=== PATIENT | female | born 1975 | race African-American/Black ===

== ENCOUNTER 2020-03-06 14:33 | Emergency (ER) | payer SELFPAY ==
[~2020-03-06] VITALS: Ht 170 cm; Wt 72.5 kg
--- NOTE | 2020-03-06 15:12 | ED General ---
General Chief Complaint: General Problems/Pain Stated Complaint: DX W/ LUPUS;BREAKOUT Source of Information: Patient Exam Limitations: No Limitations History of Present Illness Date Seen by Provider: Mar 06, 2020 Time Seen by Provider: 15:06 Initial Comments To ER by private vehicle with reports of itchy rash to the palms of her hands. States she has lupus and has been out of her medications for 2 months. This includes: amlodipine 10 mg daily Hydroxychloroquine 200 mg tablet taking 1.5 tablets daily Hydrochlorothiazide 25 mg daily Lisinopril 40 mg daily Carvedilol 12.5 mg twice a day Prednisone 5 mg daily Also reported to RN that she would like a prescription for Flexeril and OxyContin. She has just moved here from [place] a few months ago and has not yet established care with anyone. Timing/Duration: 1 Week Severity: Moderate Associated Systoms: Denies Symptoms Allergies and Home Medications Allergies Coded Allergies: No Known Drug Allergies (Unverified , 03/06/20) Patient Home Medication List Home Medication List Reviewed: Yes Review of Systems Review of Systems Constitutional: see HPI EENTM: see HPI Respiratory: no symptoms reported Cardiovascular: no symptoms reported Genitourinary: no symptoms reported Musculoskeletal: see HPI Skin: see HPI Psychiatric/Neurological: No Symptoms Reported Hematologic/Lymphatic: No Symptoms Reported Past Tqcrwzh-Mrynip-Zfzeut Hx Patient Social History Alcohol Use: Occasionally Uses Recreational Drug Use: No Smoking Status: Current Everyday Smoker Type Used: Cigarettes 2nd Hand Smoke Exposure: Yes Recent Foreign Travel: No Contact w/Someone Who Travel: No Recent Hopitalizations: No Past Medical History Surgeries: Yes (lumpectomy-doesn't know which breast) Breast, Tubal Ligation Respiratory: No Cardiac: Yes Hypertension Neurological: No Genitourinary: No Gastrointestinal: No Musculoskeletal: Yes (lupus) Endocrine: No HEENT: No Cancer: No Blood Disorders: No Physical Exam Vital Signs Capillary Refill : Height, Weight, BMI Height: '" Weight: lbs. oz. kg; BMI Method: General Appearance: No Apparent Distress, WD/WN Eyes: Bilateral Eye Normal Inspection, Bilateral Eye PERRL HEENT: PERRL/EOMI, TMs Normal Neck: Full Range of Motion, Normal Inspection Respiratory: No Accessory Muscle Use, No Respiratory Distress Cardiovascular: Regular Rate, Rhythm, Normal Peripheral Pulses Extremity: Normal Capillary Refill, Normal Inspection, Other (thickening of skin with darkening of the affected areas, multiple small vesicles, states th ey're very itchy, appearance of dyshidrotic eczema) Neurologic/Psychiatric: Alert, Oriented x3 Skin: Normal Color, Warm/Dry Progress/Results/Core Measures Suspected Sepsis SIRS Temperature: Pulse: Respiratory Rate: Blood Pressure / Mean: Results/Orders My Orders Orders - NICOLA ESPINOSA APRN Cbc With Automated Diff (03/06/20 15:02) Basic Metabolic Panel (03/06/20 15:02) Hcg,Qualitative Serum (03/06/20 15:02) Metoprolol Tartrate (Ir) Tab (Lopressor (03/06/20 15:15) Diphenhydramine Tablet (Benadryl Tablet) (03/06/20 15:15) Vital Signs/I&O Capillary Refill : Departure Impression Primary Impression: Eczema, dyshidrotic Additional Impressions: Hypertension Encounter for medication refill History of lupus Disposition: HOME, SELF-CARE Condition: Stable Departure-Patient Inst. Decision time for Depature: 15:11 Referrals: NO,LOCAL PHYSICIAN (PCP/Family) Primary Care Physician Patient Instructions: Lupus (DC), High Blood Pressure in Adults Add. Discharge Instructions: 1. Medication as directed 2. Call Dr. Schafer or Dr. Mendez or Dr. [facility] to make an appointment to be seen. They have a pharmacy in their clinic that can provide you with the medications at Little to no-cost based on certain criteria. However the prescriptions must be written by one of the clinic providers All discharge instructions reviewed with patient and/or family. Voiced understanding. Scripts Clobetasol Propionate (Clobetasol Propionate) 15 Gm Oint...g. 1 GM TP BID for 7 Days, #1 TUBE Apply to hands twice daily Prov: NICOLA ESPINOSA APRN 03/06/20 Amlodipine Besylate (Amlodipine Besylate) 5 Mg Tablet 5 MG PO DAILY, #30 TAB Prov: NICOLA ESPINOSA APRN 03/06/20 Hydroxychloroquine Sulfate (Hydroxychloroquine Sulfate) 200 Mg Tablet 1.5 TAB PO DAILY, #45 TAB Prov: NICOLA ESPINOSA APRN 03/06/20 Lisinopril (Lisinopril) 40 Mg Tablet 40 MG PO DAILY, #30 TAB Prov: NICOLA ESPINOSA APRN 03/06/20 Prednisone (Prednisone) 5 Mg Tablet 5 MG PO DAILY, #30 TAB Prov: NICOLA ESPINOSA APRN 03/06/20 Carvedilol (Carvedilol) 12.5 Mg Tablet 12.5 MG PO BID, #60 TAB Prov: NICOLA ESPINOSA APRN 03/06/20 NICOLA ESPINOSA APRN Mar 06, 2020 15:12
[2020-03-06] MEDS ORDERED: AMLO5TAB9 PO (15:15)
[2020-03-06] MEDS ORDERED: CARV12.53 PO (15:15)
[2020-03-06] MEDS ORDERED: HYDR200T46 PO (15:15)
[2020-03-06] MEDS ORDERED: CLOB15OI2 TP (15:15)
[2020-03-06] MEDS ORDERED: diphenhydrAMINE 25 MG TAB (BENADRYL) PO ONE (15:15)
[2020-03-06] MEDS ORDERED: meTOprolol TARTRATE 25 MG (LOPRESSOR) TABLET PO ONE (15:15)
[2020-03-06] MEDS ORDERED: LISI40TA PO (15:15)
[2020-03-06] MEDS ORDERED: PRED5TAB PO (15:15)
[2020-03-06 15:16] LABS: BASOPHILS # (AUTO) 0.1 10^3/uL (0.0-0.1); BASOPHILS % (AUTO) 1 % (0-10); EOSINOPHILS # (AUTO) 0.2 10^3/uL (0.0-0.3); EOSINOPHILS % (AUTO) 4 % (0-10); HEMATOCRIT 38 % (35-52); HEMOGLOBIN 12.8 G/DL (11.5-16.0); LYMPHOCYTES % (AUTO) 37 % (12-44); MEAN CORPUSCULAR HEMOGLOBIN 27 PG (25-34); MEAN CORPUSCULAR HGB CONC 33 G/DL (32-36); MEAN CORPUSCULAR VOLUME 82 FL (80-99); MEAN PLATELET VOLUME 11.7 FL (7.4-10.4); MONOCYTES # (AUTO) 0.6 X 10^3 (0.0-1.0); MONOCYTES % (AUTO) 12 % (0-12); NEUTROPHILS # (AUTO) 2.4 X 10^3 (1.8-7.8); NEUTROPHILS % (AUTO) 46 % (42-75); PLATELET COUNT 193 10^3/uL (130-400); RED CELL DISTRIBUTION WIDTH 13.9 % (10.0-14.5); WHITE BLOOD COUNT 5.3 10^3/uL (4.3-11.0)
--- OUTSIDE RECORDS SUMMARY | 2020-03-06 15:17 | XMS REPORT ---
Author Author Yana Dodge e[employer] Address Unknown Phone Unavailable Care Team Providers Care Surveyor Oil Well Directional Name Role Phone Brittany Dodge CP Unavailable Allergies, Adverse Reactions, Alerts Substance Reaction Event Type N.K.D.A. 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 Active Problem HTN (hypertension) I10 Active Medications Medication Code System Code Instructions Start Date End Date Status Dosage Albuterol Sulfate HFA [facility] [address]-51 108 (90 Ba se) MCG/ACT Inhalation every 4 hrs Sep 06, 2016 2 puffs as neede d PredniSONE [facility] [address]-03 5 mg Orally Once a day 1 tablet Carvedilol [facility] [address]-40 12.5 MG Orally bid 1 tablet Ergocalciferol [facility] [address]-45 71582 UNIT Orally weekly 1 capsule Solu-Medrol [facility] [address]-71 125 mg Injection One time, now Sep 06, 2016 as directed Hydroxychloroquine Sulfate [facility] [address]-98 200 MG Orally Once a da y 2 tablets with food or milk Lisinopril-Hydrochlorothiazide [facility] [address]-52 20-25 MG Orally Once a day Oct 08, 2013 1 tablet Cyclobenzaprine HCl [facility] [address]-69 10 mg Orally tid prn 1 tablet Ketorolac Tromethamine [facility] [address]-39 60 MG/2ML Intramu scular One time, now Sep 06, 2016 2 ml as needed Procedures Procedure Coding System Code Date Solu-Medrol, INJ (Methylprednisolone sodium)...DO NOT USE CPT-4 J2930 Sep 06, 2016 ketorolac tromethamine (Toradol), INJ CPT-4 J1885 Sep 06, 2016 ESTAB PT LEVEL IV CPT-4 05946 Sep 06, 2016 Vital Signs Date/Time: Sep 06, 2016 Temperature 97.1 F Weight 159.4 lbs Height 67 in Pain Scale 10 0-10 BMI 24.96 Index Blood Pressure Diastolic 104 mm Hg Blood Pressure Systolic 163 mm Hg Results Name Result Date Reference Range Unit Abnormali ty Flag ADE Comprehensive Panel ----Farley Antibodies <0.2 [id number] 0.0-0.9 AI ----Antiscleroderma-70 Antibodies 0.2 [id number] 0.0-0.9 AI ----Sjogren's Anti-SS-A <0.2 [id number] 0.0-0.9 AI ----Sjogren's Anti-SS-B 0.2 [id number] 0.0-0.9 AI ----Antichromatin Antibodies 1.8 [id number] 0.0-0.9 AI H ----Anti-Stefani-1 <0.2 [id number] 0.0-0.9 AI ----Anti-Centromere B Antibodies <0.2 [id number] 0.0-0.9 AI ----Anti-DNA (DS) Ab Qn <1 [id number] 0-9 IU/mL ----LIGHTNING ROD INSTALLER Antibodies 4.7 [id number] 0.0-0.9 AI H Sedimentation Rate-Westergren 100732 ----Sedimentation Rate-Westergren 26 [id number] 0-32 mm /hr Arthritis panel Uric A+ADE+RA Qn+CRP+ASO 30871 ----RA Latex Turbid. 12.2 [id number] 0.0-13.9 IU/mL ----ADE Direct Positive [id number] Negative A ----Antistreptolysin O Ab 100.7 [id number] 0.0-200.0 IU/mL ----C-Reactive Protein, Quant 13.2 [id number] 0.0-4.9 mg/L H ----Uric Acid, Serum 6.0 [id number] 2.5-7.1 mg/dL Summary Purpose eClinicalWorks Submission
--- OUTSIDE RECORDS SUMMARY | 2020-03-06 15:17 | XMS REPORT ---
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 Active Problem HTN (hypertension) I10 Active Assessment Long-term use of hydroxychloroquine Z79.899 Active Problem Long-term use of hydroxychloroquine Z79.899 Active Problem Preglaucoma, unspecified, bilateral H40.003 Active Medications Medication Code System Code Instructions Start Date End Date Status Dosage Lisinopril-Hydrochlorothiazide [facility] [address]-40 20-25 MG Orally Once a day Oct 08, 2013 1 tablet Ketorolac Tromethamine [facility] [address]-70 60 MG/2ML Intramu scular One time, now Sep 06, 2016 2 ml as needed Ergocalciferol [facility] [address]-61 19070 UNIT Orally weekly 1 capsule PredniSONE [facility] [address]-87 5 mg Orally Once a day 1 tablet Carvedilol [facility] [address]-57 12.5 MG Orally bid 1 tablet Albuterol Sulfate HFA [facility] [address]-94 108 (90 Ba se) MCG/ACT Inhalation every 4 hrs Sep 06, 2016 2 puffs as neede d Solu-Medrol [facility] [address]-24 125 mg Injection One time, now Sep 06, 2016 as directed Hydroxychloroquine Sulfate [facility] [address]-70 200 MG Orally Once a da y 2 tablets with food or milk Cyclobenzaprine HCl [facility] [address]-72 10 mg Orally tid prn 1 tablet Procedures Procedure Coding System Code Date VISUAL FIELD EXAMINATION(S) CPT-4 91876 Oct 05, 2016 Results No Known Results Summary Purpose eClinicalWorks Submission
--- OUTSIDE RECORDS SUMMARY | 2020-03-06 15:17 | XMS REPORT ---
Author Author Yana Lozoya Organization [employer] Address Unknown Phone Unavailable Care Team Providers Care Pedigree Tracer Name Role Phone Savannah Lozoya CP Unavailable Allergies, Adverse Reactions, Alerts Substance Reaction Event Type N.K.D.A. 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 Active Medications Medication Code System Code Instructions Start Date End Date Status Dosage Lisinopril-Hydrochlorothiazide [facility] [address]-15 20-25 MG Orally Once a day Oct 08, 2013 1 tablet Albuterol Sulfate HFA [facility] [address]-99 108 (90 Ba se) MCG/ACT Inhalation every 4 hrs Sep 06, 2016 2 puffs as neede d Ergocalciferol [facility] [address]-17 82996 UNIT Orally weekly 1 capsule Carvedilol [facility] [address]-31 12.5 MG Orally bid 1 tablet PredniSONE [facility] [address]-87 5 mg Orally Once a day 1 tablet Solu-Medrol [facility] [address]-23 125 mg Injection One time, now Sep 06, 2016 as directed Ketorolac Tromethamine [facility] [address]-86 60 MG/2ML Intramu scular One time, now Sep 06, 2016 2 ml as needed Cyclobenzaprine HCl [facility] [address]-21 10 mg Orally tid prn 1 tablet Hydroxychloroquine Sulfate [facility] [address]-22 200 MG Orally Once a da y 2 tablets with food or milk Procedures Procedure Coding System Code Date ECHO EXAM OF EYE, THICKNESS CPT-4 77645 Oct 05, 2016 ESTAB PT LEVEL III CPT-4 16756 Oct 05, 2016 OPTHALMIC DX SCAN CPT-4 11851 Oct 05, 2016 Results Name Result Date Reference Range Unit Abnormali ty Flag CPTR OPHTH DX SCAN OPTIC NERVE GONIOSCOPY CORNEAL PACHYMETRY Summary Purpose eClinicalWorks Submission
--- OUTSIDE RECORDS SUMMARY | 2020-03-06 15:17 | XMS REPORT ---
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 Active Problem Preglaucoma, unspecified, bilateral H40.003 Active Problem HTN (hypertension) I10 Active Medications Medication Code System Code Instructions Start Date End Date Status Dosage Ergocalciferol [facility] [address]-98 98684 UNIT Orally weekly 1 capsule Solu-Medrol [facility] [address]-16 125 mg Injection One time, now Sep 06, 2016 as directed PredniSONE [facility] [address]-77 5 mg Orally Once a day 1 tablet Cyclobenzaprine HCl [facility] [address]-08 10 mg Orally tid prn 1 tablet Lisinopril-Hydrochlorothiazide [facility] [address]-08 20-25 MG Orally Once a day Oct 08, 2013 1 tablet Albuterol Sulfate HFA [facility] [address]-43 108 (90 Ba se) MCG/ACT Inhalation every 4 hrs Sep 06, 2016 2 puffs as neede d Ketorolac Tromethamine [facility] [address]-83 60 MG/2ML Intramu scular One time, now Sep 06, 2016 2 ml as needed Hydroxychloroquine Sulfate [facility] [address]-11 200 MG Orally Once a da y 2 tablets with food or milk Carvedilol [facility] [address]-22 12.5 MG Orally bid 1 tablet Procedures Procedure Coding System Code Date VISUAL FIELD EXAMINATION(S) CPT-4 46231 Sep 16, 2016 Results No Known Results Summary Purpose eClinicalWorks Submission
--- OUTSIDE RECORDS SUMMARY | 2020-03-06 15:17 | XMS REPORT ---
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 Active 343649367 Problem HTN (hypertension) I10 Active 3 0060218 Problem Vitamin D deficiency E55.9 Active 17487307 Problem Long-term use of hydroxychloroquine Z79.899 Active 279902664 ALLERGIES Unknown Allergies SOCIAL HISTORY No smoking Hx information available PLAN OF CARE VITAL SIGNS MEDICATIONS Medication Instructions Dosage Frequency Start Date End Date Duration S tatus Hydroxychloroquine Sulfate 200 MG Orally Once a day 2 tablets wi th food or milk 24h 30 days Active PredniSONE 5 mg Orally Once a day 1 tablet 24h 30 da y(s) Active Carvedilol 12.5 MG Orally bid 1 tablet 12h 30 days A ctive Ergocalciferol 99857 UNIT Orally weekly 1 capsule 30 day(s) Active Lisinopril-Hydrochlorothiazide 20-25 MG Orally Once a day 1 tablet 24h Oct, Active Albuterol Sulfate HFA 108 (90 Base) MCG/ACT Inhalation every 4 hrs 2 puffs as needed 4h Aug, 30 days Active Ketorolac Tromethamine 60 MG/2ML Intramuscular One time, now 2 ml a s needed Aug, 1 time Active Solu-Medrol 125 mg Injection One time, now as directed Aug, 016 1 time Active Cyclobenzaprine HCl 10 mg Orally tid prn 1 tablet 30 days Active RESULTS No Results PROCEDURES Procedure Date Ordered Related Diagnosis Body Site 1 VISN PLANO-+/-4.00D 0.12-2.00D EA February 08, 2017 1 VISN PLANO-+/-4.00D 0.12-2.00D EA February 08, 2017 IMMUNIZATIONS No Known Immunizations
--- OUTSIDE RECORDS SUMMARY | 2020-03-06 15:17 | XMS REPORT ---
Author Author Yana Dodge eClinicalWorks Address Unknown Phone Unavailable Care Team Providers Care Tile Grader Name Role Phone Brittany Dodge CP Unavailable Allergies, Adverse Reactions, Alerts Substance Reaction Event Type N.K.D.A. Info Not Available Non Drug Allergy Problems Problem Type Condition Code Onset Dates Condition Statu s Problem Autoimmune disorder 279.49 Active Problem Hypertension 401.9 Active Problem HTN (hypertension) I10 Active Assessment HTN (hypertension) I10 Active Assessment Lupus M32.9 Active Medications Medication Code System Code Instructions Start Date End Date Status Dosage Aspirin [facility] [address]-11 325 MG Orally One time, now May 25, 2016 1 tablet Clonidine HCl [facility] [address]-97 0.1 MG Orally One time, now May 25, 2016 1 tablet Hydroxychloroquine Sulfate [facility] [address]-22 200 MG Orally Once a da y 2 tablets with food or milk PredniSONE [facility] [address]-67 5 MG Orally Once a day 1 tablet Lisinopril-Hydrochlorothiazide [facility] [address]-10 20-25 MG Orally Once a day Oct 08, 2013 1 tablet Carvedilol [facility] [address]-27 12.5 MG Orally bid 1 tablet Cyclobenzaprine HCl [facility] [address]-86 10 mg Orally at bedtime 1 tablet PredniSONE [facility] [address]-05 5 mg Orally Once a day May 25, 2016 1 tablet Procedures Procedure Coding System Code Date ESTAB PT LEVEL III CPT-4 45274 May 25, 2016 EKG CPT-4 70373 May 25, 2016 Vital Signs Date/Time: May 25, 2016 Temperature 98.0 F Weight 158.4 lbs Height 67 in Pain Scale 0 0-10 BMI 24.81 Index Blood Pressure Diastolic 110 mm Hg Blood Pressure Systolic 204 mm Hg Results Name Result Date Reference Range Unit Abnormali ty Flag Hgb A1c with eAG Estimation ----Hemoglobin A1c 5.0 20160525 4.8-5.6 % ----Estim. Avg Glu (eAG) 97 53787461 mg/dL TSH+Free T4 ----TSH 1.150 12589107 0.450-4.500 uIU/mL ----T4,Free(Direct) 1.00 73720754 0.82-1.77 ng/dL CBC With Differential Platelet [id number] ----Neutrophils (Absolute) 2.7 28124644 1.4-7.0 x10E3/uL ----Basos 0 58069990 % ----Monocytes(Absolute) 0.6 03942272 0.1-0.9 x10E3/uL ----Lymphs (Absolute) 1.3 08057494 0.7-3.1 x10E3/uL ----Platelets 245 27312346 150-379 x10E3/uL ----Baso (Absolute) 0.0 30492280 0.0-0.2 x10E3/uL ----RDW 13.2 66018826 12.3-15.4 % ----Eos (Absolute) 0.1 63849601 0.0-0.4 x10E3/uL ----MCHC 32.5 86176428 31.5-35.7 g/dL ----MCH 27.4 41188720 26.6-33.0 pg ----MCV 84 81878520 79-97 fL ----Lymphs 28 70764671 % ----Neutrophils 57 72119220 % ----Eos 2 66315232 % ----Monocytes 13 30821271 % ----Immature Granulocytes 0 53085550 % ----Immature Grans (Abs) 0.0 75685953 0.0-0.1 x10E3/uL ----WBC 4.8 38892527 3.4-10.8 x10E3/uL ----RBC 4.49 35036237 3.77-5.28 x10E6/uL ----Hemoglobin 12.3 67048693 11.1-15.9 g/dL ----Hematocrit 37.9 25674865 34.0-46.6 % Vitamin D, 25-Hydroxy 974220 ----Vitamin D, 25-Hydroxy 11.2 26268353 30.0-100.0 ng/mL L Lipid Panel With LDL/HDL Ratio ----LDL/HDL Ratio 1.1 77322466 0.0-3.2 ratio units ----LDL Cholesterol Calc 80 74137779 0-99 mg/dL ----VLDL Cholesterol Smith 14 38526489 5-40 mg/dL ----HDL Cholesterol 73 77802601 >39 mg/dL ----Triglycerides 70 88097714 0-149 mg/dL ----Cholesterol, Total 167 45842869 100-199 mg/dL Comp Metabolic Panel (14 701453 CMP ----Creatinine, Serum 0.81 87742747 0.57-1.00 mg/dL ----BUN 14 20160525 6-24 mg/dL ----eGFR If Africn Am 104 73397604 >59 mL/min/1.73 ----eGFR If NonAfricn Am 90 53550549 >59 mL/min/1.73 ----Sodium, Serum 138 20160525 134-144 mmol/L ----BUN/Creatinine Ratio 17 20160525 9-23 ----Chloride, Serum 98 20160525 97-108 mmol/L ----Potassium, Serum 3.9 80610109 3.5-5.2 mmol/L ----Carbon Dioxide, Total 22 20160525 18-29 mmol/L ----Protein, Total, Serum 6.9 19512738 6.0-8.5 g/dL ----Calcium, Serum 9.3 51020644 8.7-10.2 mg/dL ----Globulin, Total 2.6 13174910 1.5-4.5 g/dL ----Albumin, Serum 4.3 33962281 3.5-5.5 g/dL ----Bilirubin, Total 0.4 18792583 0.0-1.2 mg/dL ----Glucose, Serum 98 85837347 65-99 mg/dL ----A/G Ratio 1.7 97649085 1.1-2.5 ----ALT (SGPT) 17 20160525 0-32 IU/L ----Alkaline Phosphatase, S 82 84815107 39-117 IU/L ----AST (SGOT) 16 05876226 0-40 IU/L Summary Purpose eClinicalWorks Submission
--- OUTSIDE RECORDS SUMMARY | 2020-03-06 15:17 | XMS REPORT ---
Author Author Yana Dodge e[employer] Address Unknown Phone Unavailable Care Team Providers Care Head Butler Name Role Phone Brittany Dodge CP Unavailable Allergies, Adverse Reactions, Alerts Substance Reaction Event Type N.K.D.A. 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 Active Problem Vitamin D deficiency E55.9 Active Problem Hypertension 401.9 Active Assessment HTN (hypertension) I10 Active Problem HTN (hypertension) I10 Active Problem Autoimmune disorder 279.49 Active Medications Medication Code System Code Instructions Start Date End Date Status Dosage Cyclobenzaprine HCl [facility] [address]-85 10 mg Orally at bedtime 1 tablet Carvedilol [facility] [address]-78 12.5 MG Orally bid 1 tablet PredniSONE [facility] [address]-36 5 MG Orally Once a day 1 tablet PredniSONE [facility] [address]-93 5 mg Orally Once a day May 25, 2016 1 tablet Ergocalciferol [facility] [address]-27 57585 UNIT Orally weekly May 27 016 1 capsule Ergocalciferol [facility] [address]-07 03345 UNIT Orally weekly 1 capsule Lisinopril-Hydrochlorothiazide [facility] [address]-72 20-25 MG Orally Once a day 1 tablet Hydroxychloroquine Sulfate [facility] [address]-72 200 MG Orally Once a da y 2 tablets with food or milk Procedures Procedure Coding System Code Date ESTAB PT LEVEL III CPT-4 24140 Jun 22, 2016 Vital Signs Date/Time: Jun 22, 2016 Temperature 98.0 F Weight 165 lbs Height 67 in Pain Scale 0 0-10 BMI 25.84 Index Blood Pressure Diastolic 92 mm Hg Blood Pressure Systolic 151 mm Hg Results No Known Results Summary Purpose eClinicalWorks Submission
--- OUTSIDE RECORDS SUMMARY | 2020-03-06 15:17 | XMS REPORT ---
Author Author Yana Dodge [employer] Address Unknown Phone Unavailable Care Team Providers Care Strength And Conditioning Coach Name Role Phone Brittany Dodge CP Unavailable Allergies, Adverse Reactions, Alerts Substance Reaction Event Type N.K.D.A. 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 Active Problem HTN (hypertension) I10 Active Medications Medication Code System Code Instructions Start Date End Date Status Dosage Cyclobenzaprine HCl [facility] [address]-20 10 mg Orally at bedtime 1 tablet Hydroxychloroquine Sulfate [facility] [address]-73 200 MG Orally Once a da y 2 tablets with food or milk Aspirin [facility] [address]-11 325 MG Orally One time, now Jul 06, 2016 1 tablet Carvedilol [facility] [address]-72 25 MG Orally bid 1 tablet Ergocalciferol [facility] [address]-74 42489 UNIT Orally weekly 1 capsule PredniSONE [facility] [address]-04 5 mg Orally Once a day May 25, 2016 1 tablet Ergocalciferol [facility] [address]-95 93762 UNIT Orally weekly May 27 016 1 capsule Lisinopril-Hydrochlorothiazide [facility] [address]-76 20-25 MG Orally Once a day Oct 08, 2013 1 tablet Clonidine HCl [facility] [address]-75 0.2 MG Orally One time, now Jul 06, 2016 1 tablet PredniSONE [facility] [address]-64 5 MG Orally Once a day 1 tablet Procedures Procedure Coding System Code Date ESTAB PT LEVEL III CPT-4 66849 Jul 06, 2016 Vital Signs Date/Time: Jul 06, 2016 Temperature 98.4 F Weight 160.0 lbs Height 67 in Pain Scale 0 0-10 BMI 25.06 Index Blood Pressure Diastolic 103 mm Hg Blood Pressure Systolic 209 mm Hg Results No Known Results Summary Purpose eClinicalWorks Submission
--- OUTSIDE RECORDS SUMMARY | 2020-03-06 15:17 | XMS REPORT ---
Author Author Yana Lozoya Organization [employer] Address Unknown Phone Unavailable Care Team Providers Care Tenterer Name Role Phone Savannah Lozoya CP Unavailable Allergies, Adverse Reactions, Alerts Substance Reaction Event Type N.K.D.A. 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 Active Problem Vitamin D deficiency E55.9 Active Problem Hypertension 401.9 Active Assessment Myopia, bilateral H52.13 Active Problem HTN (hypertension) I10 Active Problem Autoimmune disorder 279.49 Active Medications Medication Code System Code Instructions Start Date End Date Status Dosage PredniSONE [facility] [address]-11 5 MG Orally Once a day 1 tablet Cyclobenzaprine HCl [facility] [address]-86 10 mg Orally at bedtime 1 tablet Carvedilol [facility] [address]-23 12.5 MG Orally bid 1 tablet PredniSONE [facility] [address]-30 5 mg Orally Once a day May 25, 2016 1 tablet Ergocalciferol [facility] [address]-20 39942 UNIT Orally weekly May 27 016 1 capsule Hydroxychloroquine Sulfate [facility] [address]-08 200 MG Orally Once a da y 2 tablets with food or milk Lisinopril-Hydrochlorothiazide [facility] [address]-16 20-25 MG Orally Once a day Oct 08, 2013 1 tablet Procedures Procedure Coding System Code Date Comprehensive CPT-4 16775 Jun 22, 2016 DETERMINATION OF REFRACT CPT-4 01024 Jun 22, 2016 CPTR OPHTH DX IMG POST SEGMT CPT-4 20284 Jun 22, 2016 Results Name Result Date Reference Range Unit Abnormali ty Flag CPTR OPHTH DX IMG POST SEGMT Summary Purpose eClinicalWorks Submission
--- OUTSIDE RECORDS SUMMARY | 2020-03-06 15:17 | XMS REPORT ---
Author Author Yana Caldera [facility] [employer] Address Unknown Phone Unavailable Care Team Providers Care Edge Finisher Name Role Phone Louise Caldera CP Unavailable Allergies, Adverse Reactions, Alerts Substance Reaction Event Type N.K.D.A. Info Not Available Non Drug Allergy Problems Problem Type Condition Code Onset Dates Condition Statu s Assessment Screen for sexually transmitted diseases Z11.3 Active Assessment Encounter for routine gyneco logical examination with Papanicolaou smear of cervix Z01.419 Active Assessment Encounter for screening mammogram for ma lignant neoplasm of breast Z12.31 Active Problem Vitamin D deficiency E55.9 Active Problem Long-term use of hydroxychloroquine Z79.899 Active Problem Encounter for routine gyneco logical examination with Papanicolaou smear of cervix Z01.419 Active Problem Autoimmune disorder 279.49 Active Problem Hypertension 401.9 Active Problem Preglaucoma, unspecified, bilateral H40.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 Active Problem HTN (hypertension) I10 Active Assessment Screening for cervical cancer Z12.4 Active Assessment Tobacco abuse counseling Z71.6 Act [place] Assessment Tobacco use Z72.0 Active Assessment Poorly-controlled hypertension I10 Active Medications Medication Code System Code Instructions Start Date End Date Status Dosage PredniSONE [facility] [address]-05 5 mg Orally Once a day May 25, 2016 1 tablet Cyclobenzaprine HCl [facility] [address]-83 10 mg Orally at bedtime 1 tablet Lisinopril-Hydrochlorothiazide [facility] [address]-43 20-25 MG Orally Once a day Oct 08, 2013 1 tablet Ergocalciferol [facility] [address]-34 82197 UNIT Orally weekly 1 capsule Hydroxychloroquine Sulfate [facility] [address]-94 200 MG Orally Once a da y 2 tablets with food or milk Ergocalciferol [facility] [address]-44 64266 UNIT Orally weekly May 27 016 1 capsule Carvedilol [facility] [address]-43 12.5 MG Orally bid 1 tablet Procedures Procedure Coding System Code Date PREV MED ESTAB 4064 CPT-4 69181 Jul 06, 2016 Vital Signs Date/Time: Jul 06, 2016 Temperature 98.1 F Weight 161 lbs Height 67 in Pain Scale 0 0-10 BMI 25.21 Index Blood Pressure Diastolic 133 mm Hg Blood Pressure Systolic 197 mm Hg Results Name Result Date Reference Range Unit Abnormali ty Flag Panel [id number] (4th generation) ----HIV Screen 4th Generation wRfx Non Reactive 20160706 Non Reacti ve RPR, Rfx Qn RPR/Confirm TP ----RPR Non Reactive [id number] Non Reactive Hepatitis Panel (4) 259269 ----Hep C Virus Ab <0.1 [id number] 0.0-0.9 s/co ratio ----HBsAg Screen Negative [id number] Negative ----Hep B Core Ab, IgM Negative [id number] Negative ----Hep A Ab, IgM Negative [id number] Negative Summary Purpose eClinicalWorks Submission
--- OUTSIDE RECORDS SUMMARY | 2020-03-06 15:17 | XMS REPORT ---
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 Active Problem HTN (hypertension) I10 Active Problem Autoimmune disorder 279.49 Active Medications Medication Code System Code Instructions Start Date End Date Status Dosage PredniSONE [facility] [address]-19 5 mg Orally Once a day May 25, 2016 1 tablet Ergocalciferol [facility] [address]-49 29497 UNIT Orally weekly May 27 016 1 capsule Lisinopril-Hydrochlorothiazide [facility] [address]-94 20-25 MG Orally Once a day Oct 08, 2013 1 tablet Carvedilol [facility] [address]-33 12.5 MG Orally bid 1 tablet Hydroxychloroquine Sulfate [facility] [address]-56 200 MG Orally Once a da y 2 tablets with food or milk PredniSONE [facility] [address]-63 5 MG Orally Once a day 1 tablet Cyclobenzaprine HCl [facility] [address]-91 10 mg Orally at bedtime 1 tablet Ergocalciferol [facility] [address]-50 37230 UNIT Orally weekly 1 capsule Procedures Procedure Coding System Code Date EYE EXAM WITH PHOTOS CPT-4 99896 Jun 28 6 Results Name Result Date Reference Range Unit Abnormali ty Flag [employer] Summary Purpose eClinicalWorks Submission
--- OUTSIDE RECORDS SUMMARY | 2020-03-06 15:17 | XMS REPORT ---
Author Author Yana Dodge [facility] eClinicalWorks Address Unknown Phone Unavailable Care Team Providers Care Head Resident Name Role Phone Brittany Dodge Unavailable Allergies No Known Allergies Problems Problem Type Condition Code Onset Dates Condition Statu s Problem HTN (hypertension) I10 Active Problem Autoimmune disorder 279.49 Active Problem Vitamin D deficiency E55.9 Active Problem Hypertension 401.9 Active Assessment Vitamin D deficiency E55.9 Active Medications Medication Code System Code Instructions Start Date End Date Status Dosage Ergocalciferol [facility] [address]-91 60301 UNIT Orally weekly May 27 016 1 capsule Results No Known Results Summary Purpose eClinicalWorks Submission
[2020-03-06 15:37] LABS: BUN/CREATININE RATIO 20; CALCIUM 9.5 MG/DL (8.5-10.1); CARBON DIOXIDE 19 MMOL/L (21-32); CHLORIDE 102 MMOL/L (98-107); CREATININE SERUM 0.86 MG/DL (0.60-1.30); GFR ESTIMATED > 60; GLUCOSE 104 MG/DL (70-105); POTASSIUM 3.8 MMOL/L (3.6-5.0); SODIUM 134 MMOL/L (135-145)
[2020-03-06 15:50] VITALS: BP 203/118
== END 2020-03-06 15:50 | disposition home or self-care (01) ==
LOC: ER 14:35
DX: L30.1 Dyshidrosis [pompholyx] (principal); M32.9 Systemic lupus erythematosus, unspecified; F17.210 Nicotine dependence, cigarettes, uncomplicated; I10 Essential (primary) hypertension; Z79.899 Other long term (current) drug therapy
CPT/HCPCS: 36415; 80048; 84703; 85025; 99283